=== PATIENT | male | born 1940 | race Caucasian/White ===

== ENCOUNTER 2020-03-25 06:59 | Day surgery (SDC) | payer MEDICARE ==
[2020-03-18 11:05] LABS: BASOPHILS % (AUTO) 0.5 % (0-1); EOSINOPHILS # (AUTO) 0.1 X10'3 (0-0.9); EOSINOPHILS % (AUTO) 1.3 % (0-6); LYMPHOCYTES # (AUTO) 1.6 X10'3 (1.1-4.8); LYMPHOCYTES % (AUTO) 20.7 % (21-51); MEAN CORPUSCULAR HEMOGLOBIN 33.9 PG (27.0-31.0); MEAN CORPUSCULAR HGB CONC 33.6 g/dL (33.0-36.5); MEAN CORPUSCULAR VOLUME 100.8 FL (78-98); MEAN PLATELET VOLUME 9.1 FL (7.4-10.4); MONOCYTES # (AUTO) 0.7 X10'3 (0-0.9); MONOCYTES % (AUTO) 9.6 % (2-12); NEUTROPHILS # (AUTO) 5.2 X10'3 (1.8-7.7); NEUTROPHILS % (AUTO) 67.9 % (42-75); PRE OP HEMATOCRIT 40.1 % (42.0-52.0); PRE OP HEMOGLOBIN 13.5 g/dL (14.0-17.9); PRE OP PLATELET COUNT 198 X10'3 (140-440); RED BLOOD COUNT 3.98 X10'6 (4.70-6.10); RED CELL DISTRIBUTION WIDTH 13.8 % (11.5-14.5)
[2020-03-18 11:16] LABS: PRE OP PROTIME 30.3 SECONDS (9.0-12.0)
[2020-03-18 11:17] LABS: PRE OP INR 3.1 INR
[2020-03-18 11:18] LABS: ALBUMIN 4.1 G/DL (3.4-5.0); ALBUMIN/GLOBULIN RATIO 1.4 (1.1-1.5); ALKALINE PHOSPHATASE 92 IU/L (46-116); BLOOD UREA NITROGEN 16 MG/DL (7-18); BUN/CREATININE RATIO 16.3 (5.4-32.0); CALCIUM 9.3 MG/DL (8.5-10.1); CHLORIDE 104 MMOL/L (99-107); CREATININE 0.98 MG/DL (0.60-1.10); PRE OP ALT 32 U/L (30-65); PRE OP ANION GAP 2 (8-16); PRE OP AST 26 U/L (10-37); PRE OP BILIRUB, TOTAL 0.5 MG/DL (0.0-1.0); PRE OP GLUCOSE 183 MG/DL (70-104); PRE OP POTASSIUM 4.1 MMOL/L (3.4-5.1); PRE OP SODIUM 136 MMOL/L (135-145); TOTAL CARBON DIOXIDE 30.3 MMOL/L (24-32); TOTAL PROTEIN 7.1 G/DL (6.4-8.2); eGFR 74 ML/MIN
[2020-03-18 11:26] LABS: HEMOGLOBIN A1C 6.3 % (4.5-6.2)
[~2020-03-25] VITALS: Ht 182.9 cm; Wt 93.9 kg
[~2020-03-25 06:59] MED LIST: ACET-1025 PO; ALLO300T8 PO; ASPI-1265 PO; BUPIVAcaine/PF 2.5mg/ml (0.25%) 10ml vial ONE; CELE-193 PO; DOCUMENT DATE & TIME OF BETA-BLOCKER PO ONE; FLO0.4C PO; KETO5DRO3 LEFTEYE; LOVA40TA2 PO; METF-438 PO; METO25TA6 PO; SITA100T11 PO; WARF2.5T82 PO; [UNRECOGNIZED DRUG - OTHER] LEFTEYE; ceFAZolin 2gm in dextrose, iso 50 ML IV ONE; famotidine 10mg tablet PO ONE; ringers solution, lacted 1,000 ML IV SCH
[2020-03-25] MEDS ORDERED: LIDOcaine 0.5% (5mg/ml) 50ml vial ONE (07:46)
[2020-03-25 08:00] VITALS: BP 120/74
[2020-03-25 09:07] LABS: PRE OP PARTIAL THROMB. TIME 37 SECONDS (22-32)
[2020-03-25] MEDS ORDERED: ondansetron/PF 4mg/2ml inj IV PRN (09:40)
[2020-03-25] MEDS ORDERED: meperidine/PF 25mg/ml syringe IV PRN ×3 (09:40)
[2020-03-25] MEDS ORDERED: morphine 2 MG/ML inj. syringe IV PRN (09:40)
[2020-03-25] MEDS ORDERED: ringers solution, lacted 1,000 ML IV SCH (09:40)
[2020-03-25] MEDS ORDERED: proCHLORperazine 10 MG/2 ml inj IV PRN (09:40)
[2020-03-25] MEDS ORDERED: morphine 4 MG/ML inj SYRINge IV PRN (09:40)
[2020-03-25] MEDS ORDERED: midazolam 2 mg/2 ml injection ONE (09:51)
[2020-03-25] MEDS ORDERED: fentaNYL/PF 50MCG/1 ML 2ML syringe ONE (09:51)
[2020-03-25 10:17] VITALS: BP 122/69
--- NOTE | 2020-03-25 10:17 | NUR ---
Received from OR via [facility], accompanied by Anesthesiologist DR MELENDEZ and report given by Anesthesiologist. PT DROWSY, DENEIS PAIN, LEFT HAND/WRIST W/BIAS DRSG COVERING INCISION/DRSG, CDI, FINGERS PWD, LUMBER ESTIMATOR 1-2 SECONDS. Addendum: 03/25/20 at 1035 by Brooke Encarnacion RN Amended: Links added.
[2020-03-25 10:27] VITALS: BP 105/64
[2020-03-25 10:37] VITALS: BP 122/73
[2020-03-25 10:47] VITALS: BP 119/71
[2020-03-25 10:57] VITALS: BP 124/73
--- NOTE | 2020-03-25 11:17 | NUR ---
PT AWAKE, DENIES PAIN, D/C INSTRUCTIONS GIVEN AND GONE OVER W/PT WHO VERBALIZED UNDERSTANDING, PT D/CD TO HOME VIA W/C TO PRIVATE VEHICLE W/O INCIDENT. Addendum: 03/25/20 at 1126 by Brooke Encarnacion RN Amended: Links added.
== END 2020-03-25 11:17 | disposition home or self-care (01) ==
LOC: PAS 06:59
PROVIDERS: ATTEND Orthopaedic Surgery Hand Surgery
DX: G56.02 Carpal tunnel syndrome, left upper limb (principal); G47.30 Sleep apnea, unspecified; E11.39 Type 2 diabetes mellitus with other diabetic ophthalmic complication; H40.9 Unspecified glaucoma; Z88.5 Allergy status to narcotic agent; Z79.01 Long term (current) use of anticoagulants; Z79.899 Other long term (current) drug therapy; Z20.828 Contact with and (suspected) exposure to other viral communicable diseases; Z96.653 Presence of artificial knee joint, bilateral; Z98.890 Other specified postprocedural states
CPT/HCPCS: 36415; 64721; 80053; 82948; 83036; 85025; 85610; 85730; 87635; A6222; J2001; J2250; J3010; J3490; A4215; A6449; J7120

== ENCOUNTER 2022-05-20 08:59 | Outpatient (CLI) | payer MEDICARE ==
[~2022-05-20] VITALS: Ht 182.9 cm; Wt 94.3 kg
[2022-05-20] VITALS (8 sets, daily range): BP systolic 135–163; BP diastolic 56–71
[~2022-05-20 08:59] MED LIST changes: -BUPIVAcaine/PF 2.5mg/ml (0.25%) 10ml vial ONE; -DOCUMENT DATE & TIME OF BETA-BLOCKER PO ONE; +LOP25T PO; -METO25TA6 PO; -ceFAZolin 2gm in dextrose, iso 50 ML IV ONE; -famotidine 10mg tablet PO ONE; -ringers solution, lacted 1,000 ML IV SCH
[2022-05-20] MEDS ORDERED: regadenoson 0.4mg/5ml syringe IV ONE (09:55)
[2022-05-20] MEDS ORDERED: normal saline 500ml IV soln 500 ML IV ONE (10:00)
[2022-05-20] MEDS ORDERED: aminophylline 500mg/20ml vial IV PRN (10:00)
[2022-05-20] MEDS ORDERED: nitroGLYCERIN 0.4mg SUBLingual tab SL PRN (10:00)
== END 2022-05-20 23:59 | disposition home or self-care (01) ==
LOC: RAD 08:59
PROVIDERS: ATTEND Internal Medicine Cardiovascular Disease
DX: Z01.810 Encounter for preprocedural cardiovascular examination (principal); I25.10 Atherosclerotic heart disease of native coronary artery without angina pectoris; E11.9 Type 2 diabetes mellitus without complications
CPT/HCPCS: 78452; 93017; A9500; J0280; J2785; J7040

== ENCOUNTER 2022-07-06 06:23 | Day surgery (SDC) | payer MEDICARE ==
[2022-07-03 12:06] LABS: BASOPHILS % (AUTO) 0.4 % (0-1); EOSINOPHILS # (AUTO) 0.1 X10'3 (0-0.9); EOSINOPHILS % (AUTO) 1.6 % (0-6); HEMATOCRIT 32.8 % (42.0-52.0); HEMOGLOBIN 10.8 g/dl (14.0-17.9); LYMPHOCYTES # (AUTO) 1.5 X10'3 (1.1-4.8); LYMPHOCYTES % (AUTO) 21.5 % (21-51); MEAN CORPUSCULAR HEMOGLOBIN 33.6 PG (27.0-31.0); MEAN CORPUSCULAR VOLUME 101.8 FL (78-98); MEAN PLATELET VOLUME 9.2 FL (7.4-10.4); MONOCYTES # (AUTO) 0.8 X10'3 (0-0.9); MONOCYTES % (AUTO) 11.4 % (2-12); NEUTROPHILS # (AUTO) 4.7 X10'3 (1.8-7.7); NEUTROPHILS % (AUTO) 65.1 % (42-75); PLATELET COUNT 156 X10'3 (140-440); RED BLOOD COUNT 3.23 X10'6 (4.70-6.10); WHITE BLOOD COUNT 7.2 X10'3 (4.5-11.0)
[2022-07-03 12:26] LABS: APTT 40 SECONDS (22-32)
[2022-07-03 12:40] LABS: ALBUMIN 4.1 G/DL (3.4-5.0); ANION GAP 6 (8-16); BLOOD UREA NITROGEN 21 MG/DL (7-18); BUN/CREATININE RATIO 20.6 (5.4-32.0); CALCIUM 9.2 MG/DL (8.5-10.1); CHLORIDE 103 MMOL/L (99-107); CREATININE 1.02 MG/DL (0.60-1.10); GLUCOSE 123 MG/DL (70-104); POTASSIUM 4.7 MMOL/L (3.5-5.1); SODIUM 138 MMOL/L (135-145); TOTAL CARBON DIOXIDE 28.9 MMOL/L (24-32); eGFR 70 ML/MIN
[~2022-07-06] VITALS: Ht 182.9 cm; Wt 96.8 kg
[2022-07-06] VITALS (13 sets, daily range): BP systolic 109–149; BP diastolic 56–72
[2022-07-06] MEDS ORDERED: LORazepam 0.5 MG tablet PO PRN (06:45)
[2022-07-06] MEDS ORDERED: normal saline 1,000 ML IV SCH (06:45)
[2022-07-06] MEDS ORDERED: diphenhydrAMINE 25mg capsule PO PRN (06:45)
[2022-07-06] MEDS ORDERED: nitroGLYCERIN-Tridil 50MG/D5W 250 ML IV ONE (07:33)
[2022-07-06] MEDS ORDERED: iohexol 350MG/ML 100ml bottle IV ONE (07:33)
[2022-07-06] MEDS ORDERED: verapamil 2.5 mg/ml inj IV ONE (07:33)
[2022-07-06] MEDS ORDERED: midazolam 1 mg/ML 2ml injection ONE (07:33)
[2022-07-06] MEDS ORDERED: LIDOcaine 1% (10mg/ml) 2ml vial ONE (07:33)
[2022-07-06] MEDS ORDERED: fentaNYL/PF 50MCG/1 ML 2ML syringe ONE (07:33)
[2022-07-06] MEDS ORDERED: heparin 1,000unit/ml 10ml vial 10 ML ONE (07:33)
[2022-07-06] MEDS ORDERED: WARF-55 PO (07:42)
[2022-07-06] MEDS ORDERED: CHOL100024 PO (07:42)
[2022-07-06] MEDS ORDERED: Calcium PO (07:42)
[2022-07-06] MEDS ORDERED: BRIM5DRO (07:42)
[2022-07-06] MEDS ORDERED: MULT-1085 PO (07:42)
[2022-07-06] MEDS ORDERED: WARF7.5T48 PO (07:42)
[2022-07-06] MEDS ORDERED: Metamucil PO (07:42)
[2022-07-06] MEDS ORDERED: LIDOcaine 1% 30ml preserv. free vial ONE (08:25)
[2022-07-06] MEDS ORDERED: HYDROcodone/acetaminophen 5mg/325mg tablet PO PRN (09:55)
[2022-07-06] MEDS ORDERED: HYDROcodone/acetaminophen 10/325mg tab PO PRN (09:55)
[2022-07-06] MEDS ORDERED: metoprolol tartrate 25mg tablet PO SCH (09:57)
[2022-07-06 10:00] LABS: ISTAT Hct MIX 30 %PCV (42-52); ISTAT O2 SATURATION MIX VENOUS 71 % (60-80); ISTAT SOURCE BLNK
[2022-07-06 10:00] LABS: ISTAT HGB ART 10.2 g/dl (14.0-17.9); ISTAT Hct ART 30 %PCV (42-52); ISTAT O2 SATURATION ARTERIAL 99 % (95-98); ISTAT SOURCE BLNK
== END 2022-07-06 15:05 | disposition home or self-care (01) ==
LOC: SSTAY O 06:23
PROVIDERS: ATTEND Internal Medicine Cardiovascular Disease
DX: R94.39 Abnormal result of other cardiovascular function study (principal); I25.10 Atherosclerotic heart disease of native coronary artery without angina pectoris; I48.20 Chronic atrial fibrillation, unspecified; E11.9 Type 2 diabetes mellitus without complications; I65.23 Occlusion and stenosis of bilateral carotid arteries; G47.30 Sleep apnea, unspecified; I10 Essential (primary) hypertension; E78.5 Hyperlipidemia, unspecified; Z79.84 Long term (current) use of oral hypoglycemic drugs; Z79.82 Long term (current) use of aspirin; Z79.899 Other long term (current) drug therapy; Z96.653 Presence of artificial knee joint, bilateral; Z98.890 Other specified postprocedural states; Z95.2 Presence of prosthetic heart valve; Z82.49 Family history of ischemic heart disease and other diseases of the circulatory system
CPT/HCPCS: 36415; 76937; 80048; 82803; 82948; 85014; 85025; 85610; 85730; 93005; 93460; 99152; 99153; C1751; C1760; C1769; C1894; J1644; J2250; J3010; J3490; J7030; Q0163; Q9967; A6258; A6449; C1725

== ENCOUNTER 2022-09-07 05:52 | Day surgery (SDC) | payer MEDICARE ==
[2022-08-31 15:13] LABS: BASOPHILS % (AUTO) 0.3 % (0-1); EOSINOPHILS # (AUTO) 0.1 X10'3 (0-0.9); EOSINOPHILS % (AUTO) 1.6 % (0-6); LYMPHOCYTES # (AUTO) 1.6 X10'3 (1.1-4.8); LYMPHOCYTES % (AUTO) 25.4 % (21-51); MEAN CORPUSCULAR HEMOGLOBIN 34.9 PG (27.0-31.0); MEAN CORPUSCULAR HGB CONC 34.3 g/dL (33.0-36.5); MEAN CORPUSCULAR VOLUME 101.6 FL (78-98); MEAN PLATELET VOLUME 9.4 FL (7.4-10.4); MONOCYTES # (AUTO) 0.7 X10'3 (0-0.9); MONOCYTES % (AUTO) 11.2 % (2-12); NEUTROPHILS % (AUTO) 61.5 % (42-75); PRE OP HEMATOCRIT 30.7 % (42.0-52.0); PRE OP PLATELET COUNT 169 X10'3 (140-440); RED BLOOD COUNT 3.02 X10'6 (4.70-6.10); RED CELL DISTRIBUTION WIDTH 13.8 % (11.5-14.5)
[2022-08-31 15:24] LABS: ALBUMIN/GLOBULIN RATIO 1.6 (1.1-1.5); ALKALINE PHOSPHATASE 80 IU/L (46-116); BLOOD UREA NITROGEN 20 MG/DL (7-18); BUN/CREATININE RATIO 18.9 (10.0-20.0); CALCIUM 9.4 MG/DL (8.5-10.1); CHLORIDE 104 MMOL/L (99-107); CREATININE 1.06 MG/DL (0.60-1.10); PRE OP ALT 17 U/L (30-65); PRE OP ANION GAP 4 (8-16); PRE OP AST 26 U/L (10-37); PRE OP BILIRUB, TOTAL 0.3 MG/DL (0.0-1.0); PRE OP GLUCOSE 117 MG/DL (70-104); PRE OP POTASSIUM 4.7 MMOL/L (3.4-5.1); PRE OP SODIUM 140 MMOL/L (135-145); TOTAL CARBON DIOXIDE 31.8 MMOL/L (24-32); TOTAL PROTEIN 6.5 G/DL (6.4-8.2); eGFR 67 ML/MIN
[2022-08-31 15:25] LABS: PRE OP HEMOGLOBIN 10.5 g/dL (14.0-17.9)
[2022-09-07] VITALS (11 sets, daily range): BP systolic 101–153; BP diastolic 54–74
[~2022-09-07] VITALS: Ht 182.9 cm; Wt 96.1 kg
[~2022-09-07 05:52] MED LIST changes: +BRIM5DRO; +CHOL100024 PO; +Calcium PO; +DOCUMENT DATE & TIME OF BETA-BLOCKER PO ONE; +MULT-1085 PO; +Metamucil PO; -SITA100T11 PO; +WARF-55 PO; -WARF2.5T82 PO; +WARF7.5T48 PO; -[UNRECOGNIZED DRUG - OTHER] LEFTEYE; +cefazolin 2gm/D5W 100mL 100 ML IV ONE; +famotidine 20mg tablet PO ONE; +ringers solution, lacted 1,000 ML IV SCH
[2022-09-07] MEDS ORDERED: morphine 2 MG/ML inj. syringe IV PRN (07:15)
[2022-09-07] MEDS ORDERED: ringers solution, lacted 1,000 ML IV SCH (07:15)
[2022-09-07] MEDS ORDERED: morphine 4 MG/ML inj SYRINge IV PRN (07:15)
[2022-09-07] MEDS ORDERED: ondansetron/PF 4mg/2ml inj IV PRN (07:15)
[2022-09-07] MEDS ORDERED: LIDOcaine 0.5% (5mg/ml) 50ml vial ONE (07:55)
[2022-09-07] MEDS ORDERED: MIDAZolam 1 MG/ML 5ML VIAL ONE (07:56)
[2022-09-07] MEDS ORDERED: fentaNYL/PF 50MCG/1 ML 2ML syringe ONE (07:56)
[2022-09-07] MEDS ORDERED: BUPIVAcaine/PF 5 mg/ml 10ml IJ ONE (08:11)
--- NOTE | 2022-09-07 08:24 | NUR ---
Received from OR via [facility] IN STABLE CONDITION , accompanied by Anesthesiologist and TOMBSTONE POLISHER report given by TOMBST[employer] POLISHER AND Anesthesiolgist. Addendum: 09/07/22 at 0845 by Estefani Connelly RN Amended: Links added.
--- NOTE | 2022-09-07 09:34 | NUR ---
PATIENT A&OX4, DENIES PAIN, V/S WNL, NEUROVASCULAR CHECKS INTACT. IV D/C. I HAVE REVIEWED D/C INSTRUCTIONS WITH PATIENT AND THEY HAVE VERBALIZED UNDERSTANDING. PATIENT D/C HOME WITH ALL BELONGINGS AND GAVE TRANSPORT HOME .
== END 2022-09-07 09:34 | disposition home or self-care (01) ==
LOC: PAS 05:52
PROVIDERS: ATTEND Orthopaedic Surgery Hand Surgery
DX: G56.01 Carpal tunnel syndrome, right upper limb (principal); Z79.899 Other long term (current) drug therapy; Z79.01 Long term (current) use of anticoagulants; Z88.8 Allergy status to other drugs, medicaments and biological substances; M19.032 Primary osteoarthritis, left wrist; I10 Essential (primary) hypertension; E11.9 Type 2 diabetes mellitus without complications
CPT/HCPCS: 36415; 64721; 80053; 82948; 85025; 85610; A6222; J0690; J2250; J3010; J3490; J7030; J7120; Z7506; Z7512; A4215

== ENCOUNTER 2023-01-14 10:54 | Outpatient (CLI) | payer MEDICARE ==
[~2023-01-14 10:54] MED LIST changes: -DOCUMENT DATE & TIME OF BETA-BLOCKER PO ONE; -cefazolin 2gm/D5W 100mL 100 ML IV ONE; -famotidine 20mg tablet PO ONE; -ringers solution, lacted 1,000 ML IV SCH
== END 2023-01-14 23:59 | disposition home or self-care (01) ==
LOC: VAS 10:54
PROVIDERS: ATTEND Physician Assistant
DX: R60.0 Localized edema (principal)
CPT/HCPCS: 93971